=== PATIENT | female | born 1960 ===

== ENCOUNTER 2022-12-23 06:15 | Day surgery (SDC) | payer OTHER | END 2022-12-23 16:20 | disposition home or self-care (01) | LOC: CIR.AMB 06:15 | PROVIDERS: ATTEND Specialist | DX: L98.7 Excessive and redundant skin and subcutaneous tissue (principal); Z41.1 Encounter for cosmetic surgery; E65 Localized adiposity; Z20.822 Contact with and (suspected) exposure to COVID-19 ==